=== PATIENT | female | born 1970 | race Caucasian/White ===

== ENCOUNTER 2024-10-14 00:44 | Inpatient (IN) | payer OTHER ==
[~2024-10-14] VITALS: Ht 160 cm; Wt 73.6 kg
[2024-10-14 01:46] LABS: *URINE HCG, QUAL NEGATIVE (NEGATIVE)
[2024-10-14 01:47] LABS: *BILIRUBIN,URIN 3+ (NEGATIVE); *BLOOD, URINE 3+ (NEGATIVE); *CLARITY,URINE TURBID (CLEAR); *COLOR,URINE RED (YELLOW); *KETONES,URINE 2+ (NEGATIVE); *PROTEIN,URINE 3+ (NEGATIVE); *UROBILINOGEN,URINE 4.0 E.U./dl (NORMAL); LEUKOCYTE ESTERASE ,URINE 3+ (NEGATIVE); NITRITE, URINE NEGATIVE (NEGATIVE); UGLUCOSE TRACE (NEGATIVE)
[2024-10-14] MEDS ORDERED: ONDANSETRON 4 MG/2 ML VIAL ONE (02:11)
[2024-10-14] MEDS ORDERED: CEFTRIAXONE /D5W 50ML IVPB **ER PYXIS IV ONE (02:11)
[2024-10-14] MEDS ORDERED: HYDROMORPHONE 1 MG/1 ML DISP.SYRIN ONE (02:11)
[2024-10-14 02:12] LABS: SQUAMOUS EPITHELIAL CELL,UR MODERATE /HPF (NONE SEEN)
[2024-10-14] MEDS ORDERED: AMPH20TA3 PO (02:36)
[2024-10-14] MEDS ORDERED: CEFU250T85 PO (02:36)
[2024-10-14 02:37] LABS: CREATININE 0.9 mg/dL (0.6-1.3); PLATELET COUNT (AUTO) 336 K/uL (179-408); RED BLOOD CELL COUNT(AUTO) 4.59 MIL/uL (3.63-4.92); RED CELL DISTRIBUTION WIDTH 15.3 % (12.3-17.7); SODIUM SERUM 138.0 mmol/L (136-145); UREA NITROGEN, BLOOD 20.0 mg/dL (7-18); WHITE BLOOD COUNT (AUTO) 11.0 K/uL (3.8-11.8)
[2024-10-14 02:42] LABS: ASPARTATE AMINOTRANSFERASE 14.0 U/L (15-37); TOTAL PROTEIN, SERUM 7.4 g/dL (6.4-8.2)
[2024-10-14] MEDS: ONDANSETRON 4 MG/2 ML VIAL IV ONE (02:58)
[2024-10-14] MEDS: HYDROMORPHONE 1 MG/1 ML DISP.SYRIN IV ONE (02:58)
[2024-10-14] MEDS: CEFTRIAXONE 1 G in IV DEXTROSE 5% 50 ML IV ONE (02:58)
[2024-10-14] MEDS ORDERED: MAGNESIUM HYDROXIDE 30 ML LIQUID UDC PO PRN (06:00)
[2024-10-14] MEDS: IV NS 1000 ML 1,000 ML IV PRN (06:46)
[2024-10-14 08:21] LABS: PLATELET COUNT (AUTO) 294 K/uL (179-408); RED BLOOD CELL COUNT(AUTO) 4.24 MIL/uL (3.63-4.92); RED CELL DISTRIBUTION WIDTH 15.6 % (12.3-17.7); WHITE BLOOD COUNT (AUTO) 9.3 K/uL (3.8-11.8)
[2024-10-14 08:35] LABS: CREATININE 1.0 mg/dL (0.6-1.3); SODIUM SERUM 141.0 mmol/L (136-145); UREA NITROGEN, BLOOD 19.0 mg/dL (7-18)
[2024-10-14] MEDS ORDERED: APIX5TAB PO (10:14)
[2024-10-14] MEDS: ACETAMINOPHEN 325 MG TABLET PO PRN (10:38)
[2024-10-14 11:49] VITALS: BP 136/83; TEMP 97.6; O2SAT 98
[2024-10-14 16:26] VITALS: BP 148/81; TEMP 97.8; O2SAT 98
[2024-10-14 19:48] VITALS: BP 128/80; TEMP 97.9; O2SAT 98
[2024-10-14] MEDS: CEFTRIAXONE 1 G in IV DEXTROSE 5% 50 ML IV SCH (20:24)
[2024-10-14] MEDS: TAMSULOSIN HCL 0.4 MG CAP.SR.24H PO SCH (22:23)
[2024-10-14] MEDS: HYDROMORPHONE 1 MG/1 ML DISP.SYRIN IV PRN (22:24)
[2024-10-14] MEDS: ONDANSETRON 4 MG/2 ML VIAL IV PRN (22:26)
[2024-10-15 05:50] VITALS: BP 103/53; TEMP 97.8; O2SAT 98
[2024-10-15 06:56] LABS: PLATELET COUNT (AUTO) 302 K/uL (179-408); RED BLOOD CELL COUNT(AUTO) 4.20 MIL/uL (3.63-4.92); RED CELL DISTRIBUTION WIDTH 15.2 % (12.3-17.7); WHITE BLOOD COUNT (AUTO) 7.9 K/uL (3.8-11.8)
[2024-10-15 07:09] LABS: CREATININE 0.8 mg/dL (0.6-1.3); SODIUM SERUM 135.0 mmol/L (136-145); UREA NITROGEN, BLOOD 16.0 mg/dL (7-18)
[2024-10-15 11:46] VITALS: BP 132/71; TEMP 97.6; O2SAT 97
[2024-10-15 16:14] VITALS: BP 131/79; TEMP 97.9; O2SAT 99
[2024-10-15] MEDS: BISACODYL 10 MG SUPP.RECT RC ONE (20:13)
[2024-10-15 20:24] VITALS: BP 126/74; TEMP 97.5; O2SAT 98
[2024-10-15 20:26] VITALS: BP 126/74; TEMP 97.5; O2SAT 98
[2024-10-16 06:57] LABS: PLATELET COUNT (AUTO) 325 K/uL (179-408); RED BLOOD CELL COUNT(AUTO) 4.74 MIL/uL (3.63-4.92); RED CELL DISTRIBUTION WIDTH 15.2 % (12.3-17.7); WHITE BLOOD COUNT (AUTO) 9.3 K/uL (3.8-11.8)
[2024-10-16 07:15] LABS: CREATININE 0.7 mg/dL (0.6-1.3); SODIUM SERUM 138.0 mmol/L (136-145); UREA NITROGEN, BLOOD 12.0 mg/dL (7-18)
[2024-10-16 11:50] VITALS: BP 117/70; TEMP 98; O2SAT 97
[2024-10-16] MEDS ORDERED: KETOROLAC TROMETHAMINE 15 MG INJ IVP PRN (14:30)
[2024-10-16 16:02] VITALS: BP 144/75; TEMP 97.8; O2SAT 99
== END 2024-10-16 16:20 | disposition home or self-care (01) | DRG 463 ==
LOC: ER 00:55 → MEDSURG3 03:00
PROVIDERS: ADMIT Nurse Practitioner Family; ATTEND Nurse Practitioner Acute Care
DX: N13.6 Pyonephrosis (principal); N30.91 Cystitis, unspecified with hematuria; B96.89 Other specified bacterial agents as the cause of diseases classified elsewhere; E66.9 Obesity, unspecified; D68.51 Activated protein C resistance; R79.89 Other specified abnormal findings of blood chemistry; F90.9 Attention-deficit hyperactivity disorder, unspecified type; Z88.6 Allergy status to analgesic agent; Z88.5 Allergy status to narcotic agent; Z68.28 Body mass index [BMI] 28.0-28.9, adult; Z79.01 Long term (current) use of anticoagulants; Z96.0 Presence of urogenital implants
CPT/HCPCS: 36415; 76770; 83735; 84100; 84703; 85025; 85730; 87086; G0378; J0696; J1171; J2405; J7040